=== PATIENT | female | born 1985 | race Caucasian/White ===

== ENCOUNTER → 2016-06-22 | Outpatient (CLI) | payer OTHER ==
[~2016-06-22] MED LIST: CYMBALTA 60MG60 MG PO; NORCO 325 MG-51 TAB PO; PEN-VEE K500 MG PO
== END ==
LOC: BHSO 12:45
DX: F43.10 Post-traumatic stress disorder, unspecified (principal)

== ENCOUNTER → 2016-10-29 | Outpatient (CLI) | payer OTHER | LOC: BHSO 09:40 | DX: F43.10 Post-traumatic stress disorder, unspecified (principal) ==

== ENCOUNTER → 2016-11-12 | Outpatient (CLI) | payer OTHER | LOC: BHSO 09:47 | DX: F43.10 Post-traumatic stress disorder, unspecified (principal) ==

== ENCOUNTER 2016-12-12 18:33 | Emergency (ER) | payer OTHER ==
[~2016-12-12] VITALS: Ht 167.6 cm; Wt 67.5 kg
[2016-12-12 18:37] VITALS: BP 140/87; TEMP 98.2
[2016-12-12] MEDS ORDERED: CYMBALTA 60MG60 MG PO (18:39)
[2016-12-12] MEDS ORDERED: PEN-VEE K500 MG PO (18:54)
[2016-12-12] MEDS ORDERED: NORCO 325 MG-51 TAB PO (18:54)
[2016-12-12 19:05] VITALS: PULSE 105
== END 2016-12-12 19:05 | disposition home or self-care (01) ==
LOC: COL.ER 18:33
DX: K08.89 Other specified disorders of teeth and supporting structures (principal); F32.9 Major depressive disorder, single episode, unspecified

== ENCOUNTER 2017-01-04 18:55 | Emergency (ER) | payer OTHER ==
[~2017-01-04] VITALS: Ht 170.2 cm; Wt 63.6 kg
[2017-01-04 19:05] VITALS: BP 152/82; TEMP 97.7
[2017-01-04 20:48] VITALS: PULSE 82
== END 2017-01-04 20:49 | disposition home or self-care (01) ==
LOC: COL.ER 18:55
DX: S93.401A Sprain of unspecified ligament of right ankle, initial encounter (principal); S70.01XA Contusion of right hip, initial encounter; F32.9 Major depressive disorder, single episode, unspecified; W10.9XXA Fall (on) (from) unspecified stairs and steps, initial encounter; W01.0XXA Fall on same level from slipping, tripping and stumbling without subsequent striking against object, initial encounter; Y92.009 Unspecified place in unspecified non-institutional (private) residence as the place of occurrence of the external cause